=== PATIENT | female | born 1985 | race Hispanic/Latino ===

== ENCOUNTER 2017-09-29 04:50 | Inpatient (IN) | payer OTHER ==
[2017-09-29] VITALS (10 sets, daily range): BP systolic 107–144; BP diastolic 59–94
[~2017-09-29 04:50] MED LIST: PREN1TAB89 PO
[2017-09-29] MEDS ORDERED: LACTATED RINGERS 1000ML 1,000 ML IV PRN (04:52)
[2017-09-29] MEDS ORDERED: EPHEDRINE SULFATE 50 MG/ML AMPULE IVP PRN (05:00)
[2017-09-29] MEDS ORDERED: LACTATED RINGERS 500 ML 500 ML IV PRN (05:00)
[2017-09-29] MEDS ORDERED: ROPIVACAINE 0.2%200ML EPIDURAL 200 ML EP PRN (05:00)
[2017-09-29] MEDS ORDERED: NALOXONE HCL 0.4 MG/1 ML ML IV PRN (05:00)
[2017-09-29] MEDS ORDERED: OXYTOCIN-LR 20 UNITS/1000 ML 1,000 ML IV SCH ×2 (05:00→09:45)
[2017-09-29 05:34] LABS: APPEARANCE,URINE Clear (CLEAR); BILIRUBIN,URINE Negative (NEGATIVE); COLOR,URINE Yellow (YELLOW); GLUCOSE, URINE (UA) Negative (NEGATIVE); KETONES,URINE Negative (NEGATIVE); LEUKOCYTE ESTERASE ,URINE Trace (NEGATIVE); NITRATE,URINE Negative (NEGATIVE); OCCULT BLOOD,URINE Negative (NEGATIVE); PH,URINE 6.5 (5.0-8.0); PROTEIN,URINE Negative (NEGATIVE); UROBILINOGEN,URINE 0.2 mg/dL (0.2-1.0)
[2017-09-29 05:41] LABS: BACTERIA,URINE Few /HPF (None Seen); MUCUS,URINE Moderate LPF (None Seen); RBC,URINE 0-1 /HPF (0-1); SQUAMOUS EPITHELIAL CELL,UR Moderate /LPF (0-2)
[2017-09-29 06:00] LABS: HEMATOCRIT 30.6 % (36-48); MEAN CORPUSCULAR HEMOGLOBIN 29.7 pg (27.0-33.0); MEAN CORPUSCULAR HGB CONC 34.4 g/dL (32.0-36.0); MEAN CORPUSCULAR VOLUME 86.3 fL (79-99); NUCLEATED RED BLOOD CELLS 0.1 % (0.0-0.19); PLATELET COUNT (AUTO) 209 K/uL (130-400); RED BLOOD CELL COUNT(AUTO) 3.54 MIL/uL (4.00-5.50); RED CELL DISTRIBUTION WIDTH 13.8 % (11.0-15.5); WHITE BLOOD COUNT (AUTO) 10.1 K/uL (4.8-10.8)
[2017-09-29] MEDS ORDERED: LACTATED RINGERS 1000ML 1,000 ML IV ONE (06:00)
[2017-09-29] MEDS ORDERED: OXYTOCIN 10 USP UNITS/ML ONE ×2 (06:01→10:29)
[2017-09-29] MEDS ORDERED: PROMETHAZINE HCL 25 MG/ML 1ML AMPULE IM ONE (07:57)
[2017-09-29] MEDS ORDERED: MEPERIDINE-PF 50 MG/ML SYG ONE (07:57)
[2017-09-29] MEDS ORDERED: PROMETHAZINE HCL 25 MG/ML 1ML AMPULE IM SCH (08:00)
[2017-09-29] MEDS ORDERED: MEPERIDINE-PF 50 MG/ML SYG IVP SCH (08:00)
[2017-09-29] MEDS ORDERED: LIDOCAINE HCL 1% 20 ML VIAL ONE (09:03)
[2017-09-29] MEDS ORDERED: ACETAMINOPHEN-CODEINE 300/30MG TAB PO PRN (09:45)
[2017-09-29] MEDS ORDERED: DIPH,PERTUSS(ACELL),TET VAC/PF 0.5 ML VIAL IM PRN (09:45)
[2017-09-29] MEDS ORDERED: LANOLIN 30GM OINTMENT TP PRN (09:45)
[2017-09-29] MEDS ORDERED: BENZOCAINE/LANOLIN/ALOE VERA 60 ML AEROSOL TP PRN (09:45)
[2017-09-29] MEDS ORDERED: WITCH HAZEL 1 PAD TP PRN (09:45)
[2017-09-29] MEDS: IBUPROFEN 800 MG TAB PO PRN ×2 (10:18→23:27)
[2017-09-29] MEDS ORDERED: PHEN1PAC8 PO (19:26)
[2017-09-29] MEDS ORDERED: AZIT500T2 PO (19:26)
[2017-09-29] MEDS: DOCUSATE SODIUM 100 MG CAP PO SCH (20:33)
[2017-09-30 03:57] VITALS: BP 100/58
[2017-09-30 07:47] VITALS: BP 112/68
[2017-09-30] MEDS: DOCUSATE SODIUM 100 MG CAP PO SCH (09:03)
[2017-09-30] MEDS: IBUPROFEN 800 MG TAB PO PRN (09:03)
[2017-09-30 11:21] LABS: HEPATITIS Bs ANTIGEN SCREEN P Negative (Negative)
[2017-09-30 11:41] VITALS: BP 113/63
[2017-09-30 15:42] VITALS: BP 116/73
== END 2017-09-30 16:20 | disposition home or self-care (01) | DRG 775 ==
LOC: PREOBSVTOIN 04:50 → LDH 04:51 → WSH 09:35
PROC: 10E0XZZ Delivery of Products of Conception, External Approach (ICD-10-PCS; principal; 2017-09-29)
PROC: 0KQM0ZZ Repair Perineum Muscle, Open Approach (ICD-10-PCS; 2017-09-29)
PROC: 3E0234Z Introduction of Serum, Toxoid and Vaccine into Muscle, Percutaneous Approach (ICD-10-PCS; 2017-09-29)
DX: O70.1 Second degree perineal laceration during delivery (principal); Z37.0 Single live birth; Z23 Encounter for immunization; Z3A.40 40 weeks gestation of pregnancy
CPT/HCPCS: 36415; 81001; 85027; 86592; 86850; 86900; 86901; 87340; 90715; A4606; J2175; J2550; J2590; J7120

== ENCOUNTER 2019-07-01 05:38 | Inpatient (IN) | payer BC ==
[~2019-07-01] VITALS: Ht 160 cm; Wt 68.9 kg
[~2019-07-01 05:38] MED LIST changes: +AZIT500T2 PO; +PHEN1PAC8 PO
[2019-07-01] MEDS ORDERED: LACTATED RINGERS 1000ML 1,000 ML IV PRN (05:43)
[2019-07-01] MEDS ORDERED: LACTATED RINGERS 500 ML 500 ML IV PRN (05:45)
[2019-07-01] MEDS ORDERED: OXYTOCIN-LR 20 UNITS/1000 ML 1,000 ML IV SCH ×3 (05:45→11:15)
[2019-07-01] MEDS ORDERED: OXYTOCIN 10 USP UNITS/ML 20 UNIT in LACTATED RINGERS 1000ML 1,000 ML IV SCH (05:45)
[2019-07-01] MEDS ORDERED: EPHEDRINE SULFATE 50 MG/ML AMPULE IVP PRN (05:45)
[2019-07-01] MEDS ORDERED: NALOXONE HCL 0.4 MG/1 ML ML IV PRN (05:45)
[2019-07-01] MEDS ORDERED: ROPIVACAINE 0.2% 100ML VIAL 100 ML EP SCH (06:31)
[2019-07-01 06:36] LABS: MEAN CORPUSCULAR HGB CONC 33.9 g/dL (32.0-36.0); MEAN CORPUSCULAR VOLUME 88.5 fL (79-99); PLATELET COUNT (AUTO) 189 K/uL (130-400); RED BLOOD CELL COUNT(AUTO) 3.73 MIL/uL (4.00-5.50); RED CELL DISTRIBUTION WIDTH 13.7 % (11.0-15.5); WHITE BLOOD COUNT (AUTO) 9.6 K/uL (4.8-10.8)
[2019-07-01] MEDS ORDERED: folic PO (06:38)
[2019-07-01 07:04] LABS: APPEARANCE,URINE Clear (CLEAR); BILIRUBIN,URINE Negative (NEGATIVE); COLOR,URINE Yellow (YELLOW); GLUCOSE, URINE (UA) Negative (NEGATIVE); KETONES,URINE Negative (NEGATIVE); LEUKOCYTE ESTERASE ,URINE Small (NEGATIVE); NITRATE,URINE Negative (NEGATIVE); OCCULT BLOOD,URINE Negative (NEGATIVE); PH,URINE 6.5 (5.0-8.0); PROTEIN,URINE Negative (NEGATIVE); UROBILINOGEN,URINE 0.2 mg/dL (0.2-1.0)
[2019-07-01 08:11] LABS: BACTERIA,URINE Few /HPF (None Seen); RBC,URINE 0-1 /HPF (0-1)
[2019-07-01] MEDS ORDERED: FENTANYL CITRATE PF 50 MCG/1 ML 2ML VIAL ONE (09:15)
[2019-07-01] MEDS ORDERED: LIDOCAINE HCL 1% 20 ML VIAL ONE (10:39)
[2019-07-01] MEDS ORDERED: LANOLIN 30GM OINTMENT TP PRN (11:15)
[2019-07-01] MEDS ORDERED: ACETAMINOPHEN-CODEINE 300/30MG TAB PO PRN (11:15)
[2019-07-01] MEDS ORDERED: DIPH,PERTUSS(ACELL),TET VAC/PF 0.5 ML VIAL IM PRN (11:15)
[2019-07-01] MEDS ORDERED: BENZOCAINE/LANOLIN/ALOE VERA 60 ML AEROSOL TP PRN (11:15)
[2019-07-01] MEDS ORDERED: WITCH HAZEL 1 PAD TP PRN (11:15)
[2019-07-01] MEDS: IBUPROFEN 600 MG TABLET PO PRN ×2 (13:31→19:38)
[2019-07-01 15:12] VITALS: BP 112/67
[2019-07-01 19:20] VITALS: BP 119/82
[2019-07-01] MEDS: DOCUSATE SODIUM 100 MG CAP PO SCH (21:38)
[2019-07-01 23:37] VITALS: BP 117/68
[2019-07-02 03:30] VITALS: BP 122/67
[2019-07-02] MEDS: IBUPROFEN 600 MG TABLET PO PRN (06:25)
[2019-07-02 07:35] VITALS: BP 88/52
[2019-07-02] MEDS: DOCUSATE SODIUM 100 MG CAP PO SCH (08:55)
[2019-07-02] MEDS ORDERED: FLU VACC QS2019-20 36MOS UP/PF 60 MCG/0.5 ML ML IM SCH (09:00)
--- NOTE | 2019-07-02 09:55 | NUR ---
ROUNDS DR. HANSON ROUNDING ON PATIENT. NEW ORDERS RECEIVED. PT MAY DISCHARGE WHEN DISCHARGES.
[2019-07-02 12:00] VITALS: BP 101/68
--- NOTE | 2019-07-02 14:20 | NUR ---
DISCHARGE PATIENT LEFT UNIT VIA WHEELCHAIR WITH BABY IN HANDS. PERSONAL VEHICLE USED FOR TRANSPORTATION. BABY SECURE IN CARSEAT. NO COMPLAINTS OR CONCERNS ADDRESSED FROM PATIENT ON DISCHARGE.
[2019-07-03 10:11] LABS: HEPATITIS Bs ANTIGEN SCREEN P Negative (Negative)
== END 2019-07-02 14:20 | disposition home or self-care (01) | DRG 807 ==
LOC: PREOBSVTOIN 05:38 → LDH 05:40 → WSH 16:42
PROC: 10E0XZZ Delivery of Products of Conception, External Approach (ICD-10-PCS; 2019-07-01)
PROC: 0W8NXZZ Division of Female Perineum, External Approach (ICD-10-PCS; 2019-07-01)
PROC: 3E0R3BZ Introduction of Anesthetic Agent into Spinal Canal, Percutaneous Approach (ICD-10-PCS; 2019-07-01)
PROC: 00HU33Z Insertion of Infusion Device into Spinal Canal, Percutaneous Approach (ICD-10-PCS; 2019-07-01)
PROC: 3E033VJ Introduction of Other Hormone into Peripheral Vein, Percutaneous Approach (ICD-10-PCS; 2019-07-01)
PROC: 3E02340 Introduction of Influenza Vaccine into Muscle, Percutaneous Approach (ICD-10-PCS; principal; 2019-07-02)
DX: O69.81X0 Labor and delivery complicated by cord around neck, without compression, not applicable or unspecified (principal); Z37.0 Single live birth; Z3A.39 39 weeks gestation of pregnancy; Z23 Encounter for immunization
CPT/HCPCS: 36415; 81001; 85027; 86156; 86592; 86850; 86870; 86900; 86901; 87340; A4314; A4606; G0378; J2590; J2795; J3010; J3490; J7120; Q2035